=== PATIENT | female | born 1960 | race Caucasian/White ===

== ENCOUNTER 2017-02-28 09:12 | Day surgery (SDC) | payer OTHER ==
[~2017-02-28] VITALS: Ht 167.6 cm; Wt 79.0 kg
[2017-02-28 09:46] VITALS: Ht 167.6 cm; Wt 79.0 kg
[2017-02-28] MEDS ORDERED: LIDOCAINE 2% (SDV) 5 ML INJ ONE (09:51)
[2017-02-28] MEDS ORDERED: PROPOFOL 60 ML ONE (09:51)
[2017-02-28 10:05] VITALS: BP 146/77; PULSE 86; RESP 12
[2017-02-28] MEDS ORDERED: PROPOFOL 20 ML ONE (10:24)
[2017-02-28 11:17] VITALS: BP 117/69; PULSE 78; RESP 16
--- NOTE | 2017-03-01 03:13 | GILP ---
DATE OF PROCEDURE: PROCEDURE: Esophagogastroduodenoscopy. PREOPERATIVE DIAGNOSES: The patient presenting with history of difficulty in swallowing and pain du ring the act of swallowing, rule out esophageal ulcers, rule out Gianna of the esophagus, rule out peptic ulcer disease. POSTOPERATIVE DIAGNOSES: Multiple linear ulcers noted in the distal esophagus and hiatal hernia was noted. Diffuse mild gastritis was noted, and then mild to moderate degree of duodenitis noted as w ell. DESCRIPTION OF PROCEDURE: After the informed written consent was obtained, the patient was asked to lie on the left lateral side. Intravenous anesthesia was given by anesthesiologist, Dr. Caceres. Whe n the patient became somnolent, the Olympus video upper endoscope was introduced into the oropharynx , then into the esophagus. Esophagus showed evidence of multiple linear ulcers just above the GE ju nction for about 2 cm in length. Multiple biopsies were obtained to rule out infectious process to rule out Davis's esophagus. Small hiatal hernia was noted with minimal gastritis. Scope at this time was advanced into the stomach. Stomach showed several areas of erythema with the friability mo stly in the fundus. Biopsy was done from the antrum, the lesser curvature and the fundus to rule ou t H. pylori infection. The duodenum showed evidence of several areas of erosions and severe edema a nd erythema up to the postbulbar area. Scope at this time was withdrawn and biopsy was done from the stomach to rule out H. pylori infectio n and the procedure was terminated. PLAN: Omeprazole 40 mg twice a day for 1 month and then once a day. Dictated By: CHINA KENT/ELIAZAR Conf#: [id number] DID#: [id number] CC: [facility];*EndCC*
--- NOTE | 2017-03-01 03:21 | GILP ---
DATE OF PROCEDURE: 02/28/2017 PROCEDURE: Colonoscopy. PREOPERATIVE DIAGNOSIS: The patient presenting with history of weight loss, and this is a screening colonoscopy to rule out colorectal neoplasm. POSTOPERATIVE DIAGNOSES: 1. Submucosal bulge about 1.5 cm in diameter noted. Biopsy was done. 2. Minimal degree of external hemorrhoids. 3. The rest of the colon appeared normal. DESCRIPTION OF PROCEDURE: After the informed written consent was obtained, the patient was asked to lie on the left lateral side. Intravenous anesthesia was given by anesthesiologist, Dr. Caceres. Whe n the patient became somnolent, the Olympus video colonoscope was introduced into the rectum, and sc ope was advanced all the way to the ileocecal valve and appendiceal area which appeared normal; nick ashtyn, there is a bulging noted at the ileocecal valve area, and multiple biopsies were obtained to ru le out any neoplastic process. This very well could be a lipoma. The rest of the colon was examine d thoroughly which showed no evidence of ulcers, no evidence of polyps noted. Retroflexion was perf ormed which revealed skin tags. Scope was withdrawn, minimal to moderate degree of external hemorrh oids was noted, and the procedure was terminated. PLAN: Recommend further workup. Dictated By: CHINA KENT/ELIAZAR Conf#: [id number] DID#: [id number] CC: [facility];*EndCC*
== END 2017-02-28 15:22 | disposition home or self-care (01) ==
LOC: GIL 09:12
PROVIDERS: ATTEND Internal Medicine Gastroenterology
DX: K64.8 Other hemorrhoids (principal); K22.10 Ulcer of esophagus without bleeding; K44.9 Diaphragmatic hernia without obstruction or gangrene; K29.70 Gastritis, unspecified, without bleeding; K29.80 Duodenitis without bleeding
CPT/HCPCS: 43239; 45378; 88305; 88312; 88313; Z7610

== ENCOUNTER 2018-01-31 14:27 | Inpatient (IN) | END 2018-03-10 16:46 | DRG 432 ==

== ENCOUNTER 2018-06-16 17:02 | Inpatient (IN) | END 2018-06-22 13:50 | disposition home or self-care (01) | DRG 897 ==